=== PATIENT | male | born 1940 | race Native Hawaiian/Other Pacific Islander ===

== ENCOUNTER 2016-12-29 08:39 | Day surgery (SDC) | payer MEDICARE, OTHER ==
[~2016-12-29] VITALS: Ht 162.6 cm; Wt 49.1 kg
[~2016-12-29 08:39] MED LIST: 0.9% SODIUM CHLORIDE 10 ML SYRINGE IVP PRN; ALEN70TA48 PO; AMLO-512 PO; ASPI81TA42 PO; ATOR40TA28 PO; BIMA12.5OS OU; CHOL200016 PO; COMB5OS OU; GLYC10.7 PO; LOSA50TA37 PO; METO-323 PO; NITR.4 SL; OMEG100019 PO; ROFL500T PO
[2016-12-29] MEDS ORDERED: 0.9% SODIUM CHLORIDE 10 ML SYRINGE IVP ONE (08:50)
[2016-12-29] MEDS ORDERED: METOPROLOL TARTRATE 50 MG TABLET PO ONE (09:30)
[2016-12-29 09:31] LABS: CALCIUM, TOTAL 9.7 mg/dL (8.8-10.5); CREATININE 1.28 mg/dL (0.60-1.30); POTASSIUM 4.4 mmol/L (3.5-5.1)
[2016-12-29] MEDS ORDERED: METOPROLOL TARTRATE 50 MG TABLET ONE (09:41)
[2016-12-29] MEDS ORDERED: METOPROLOL TARTRATE 5 MG/5 ML VIAL ONE (10:18)
[2016-12-29] MEDS ORDERED: NITROGLYCERIN 400 MCG/SUBLINGUAL SPRAY 4.9 GM BOTTLE SL ONE (10:19)
[2016-12-29] MEDS ORDERED: SODIUM CHLORIDE 0.9% 100 ML ONE (10:32)
[2016-12-29] MEDS ORDERED: IOVERSOL 350 MG/ML 100 ML VIAL ONE (10:32)
== END 2016-12-29 11:40 | disposition home or self-care (01) ==
LOC: SDS 08:39 → EDSTATUS 11:00 → SDS 11:40
PROVIDERS: ATTEND Internal Medicine Cardiovascular Disease
DX: I25.119 Atherosclerotic heart disease of native coronary artery with unspecified angina pectoris (principal); I50.9 Heart failure, unspecified; J44.9 Chronic obstructive pulmonary disease, unspecified; F17.210 Nicotine dependence, cigarettes, uncomplicated; Z72.89 Other problems related to lifestyle; Z90.49 Acquired absence of other specified parts of digestive tract
CPT/HCPCS: 36415; 75574; 80048; 93005; J7050; Q9967; J3490

== ENCOUNTER → 2017-03-06 | Outpatient (CLI) | payer MEDICARE, OTHER ==
[~2017-03-06] MED LIST changes: -0.9% SODIUM CHLORIDE 10 ML SYRINGE IVP PRN; -ALEN70TA48 PO
== END | disposition home or self-care (01) ==
LOC: RADMN 09:54
PROVIDERS: ATTEND Internal Medicine Pulmonary Disease
DX: J47.9 Bronchiectasis, uncomplicated (principal); R91.8 Other nonspecific abnormal finding of lung field; J98.4 Other disorders of lung; I70.0 Atherosclerosis of aorta; I31.8 Other specified diseases of pericardium; M46.00 Spinal enthesopathy, site unspecified
CPT/HCPCS: 71250

== ENCOUNTER → 2018-09-20 | Outpatient (CLI) | payer MEDICARE, OTHER ==
[~2018-09-20] MED LIST changes: -CHOL200016 PO; +CHOL200059 PO; -LOSA50TA37 PO; +LOSA50TA64 PO; -METO-323 PO; +METO25XL PO; +OMEG-135 PO; -OMEG100019 PO
== END | disposition home or self-care (01) ==
LOC: RADMN 12:51
PROVIDERS: ATTEND Internal Medicine Pulmonary Disease
DX: J43.2 Centrilobular emphysema (principal); J47.9 Bronchiectasis, uncomplicated; N20.0 Calculus of kidney; R91.8 Other nonspecific abnormal finding of lung field
CPT/HCPCS: 71250

== ENCOUNTER → 2019-06-08 | Outpatient (CLI) | payer MEDICARE, OTHER ==
[~2019-06-08] MED LIST changes: -AMLO-512 PO; +AMLO10TA7 PO; +ASPI81TA40 PO; -ASPI81TA42 PO; -NITR.4 SL; +NITR0.4T52 SL
== END | disposition home or self-care (01) ==
LOC: RADMN 09:35
PROVIDERS: ATTEND Internal Medicine Pulmonary Disease
DX: R91.1 Solitary pulmonary nodule (principal)
CPT/HCPCS: 71250

== ENCOUNTER → 2019-07-27 | Outpatient (CLI) | payer MEDICARE, OTHER ==
[~2019-07-27] MED LIST changes: +CHOL200016 PO; -CHOL200059 PO
== END | disposition home or self-care (01) ==
LOC: RADMN 09:32
PROVIDERS: ATTEND Internal Medicine Pulmonary Disease
DX: J47.9 Bronchiectasis, uncomplicated (principal); N20.0 Calculus of kidney; J98.4 Other disorders of lung; K76.89 Other specified diseases of liver; I25.10 Atherosclerotic heart disease of native coronary artery without angina pectoris; J84.115 Respiratory bronchiolitis interstitial lung disease
CPT/HCPCS: 71250